=== PATIENT | male | born 1955 | race Caucasian/White ===

== ENCOUNTER 2017-04-10 07:14 | Day surgery (SDC) | payer BC ==
[2017-04-10] MEDS ORDERED: Dextrose 5%-Lactated Ringers 1,000 ML IV SCH (07:30)
[2017-04-10] MEDS ORDERED: Midazolam 1 MG/ML 2 ML SDV ONE (07:37)
[2017-04-10] MEDS ORDERED: fentaNYL 100 MCG/2 ML SDV ONE (07:37)
[2017-04-10] MEDS ORDERED: Propofol 200 MG/20 ML SDV ONE (07:37)
[2017-04-10 10:45] VITALS: BP 118/72
--- NOTE | 2017-04-16 13:21 | OR ---
DATE OF PROCEDURE: 04/10/2017 PREOPERATIVE DIAGNOSIS: History of colonic adenomas. POSTOPERATIVE DIAGNOSIS: Normal colonoscopic examination with no recurrent polyp disease. OPERATIVE PROCEDURE: Flexible colonoscopy. ANESTHESIA: IV sedation. INDICATIONS FOR PROCEDURE: This 61-year-old is 3 years status post a colonoscopy, at which time a tubular adenoma was removed. Plan is to proceed with a repeat colonoscopy with biopsies and/or polypectomy as indicated. Potential risks including bleeding and perforation were discussed, and the patient wishes to proceed. DETAILS OF PROCEDURE: The patient was taken to the operating room and placed in a left lateral decubitus position. IV sedation was administered, after which the initial digital rectal exam was performed and it was unremarkable. Colonoscope was then passed into the rectum with retroflexion revealing uncomplicated hemorrhoidal columns. The scope was then eventually passed to the level of the cecum. The prep was quite good with there only being a small amount of liquid stool to that level, no abnormalities were noted. Specifically, there were no diverticula, no areas of colitis, no polyps or other signs of neoplasia. The scope was then withdrawn and the procedure concluded. The patient was taken to the recovery room in a satisfactory condition. The recommendation would be to repeat the colonoscopy in 5 years given the history of preparations adenomas. Juwan White MD /[id number]
== END 2017-04-10 10:25 | disposition home or self-care (01) ==
LOC: JP.SDS 07:14
PROVIDERS: ATTEND Surgery
DX: Z12.11 Encounter for screening for malignant neoplasm of colon (principal); K64.9 Unspecified hemorrhoids; K21.9 Gastro-esophageal reflux disease without esophagitis; E66.9 Obesity, unspecified; Z79.899 Other long term (current) drug therapy; Z86.010 Personal history of colon polyps
CPT/HCPCS: 45378; J2250; J2704; J3010; J7042

== ENCOUNTER 2018-07-23 06:05 | Inpatient (IN) | payer BC ==
[~2018-07-23 06:05] MED LIST: Acetaminophen 500 MG Tab PO ONE; Gabapentin 300 MG Cap PO ONE
[2018-07-23] MEDS: Scopolamine 1.5 MG Transdermal Patch TRDERM SCH ×2 (06:33→16:21)
[2018-07-23] MEDS ORDERED: Povidone-Iodine 10% Soln 118.25 ML Bottle ONE (06:37)
[2018-07-23] MEDS: Sodium Chloride 0.9% 1,000 ML IV SCH ×2 (06:39→21:06)
[2018-07-23] MEDS ORDERED: Nozin Nasal Sanitizer NASBOTH ONE (07:00)
[2018-07-23] MEDS ORDERED: Midazolam 1 MG/ML 2 ML SDV ONE ×2 (07:21→09:34)
[2018-07-23] MEDS ORDERED: Propofol 200 MG/20 ML SDV ONE ×6 (07:21→10:29)
[2018-07-23] MEDS ORDERED: fentaNYL 100 MCG/2 ML SDV ONE ×2 (07:21→09:40)
[2018-07-23] MEDS ORDERED: ceFAZolin 2 GM in Premix Bag 1 BAG IV ONE (07:30)
[2018-07-23] MEDS ORDERED: Sodium Chloride 0.9% 10 ML ONE (08:08)
[2018-07-23] MEDS ORDERED: Lactated Ringers 1,000 ML ONE ×2 (08:22→10:53)
[2018-07-23] MEDS ORDERED: ePHEDrine 50 MG/ML SDV ONE (08:37)
[2018-07-23] MEDS ORDERED: Atropine 0.4 MG/ML SDV ONE (10:01)
[2018-07-23] MEDS ORDERED: Acetaminophen 325 MG Tab PO PRN (11:08)
[2018-07-23] MEDS ORDERED: Acetaminophen/HYDROcodone 325-5 MG Tab PO PRN ×2 (11:08→11:37)
[2018-07-23] MEDS ORDERED: ceFAZolin 1 GM in Sodium Chloride 0.9% 50 ML IV SCH ×2 (11:15→14:00)
[2018-07-23] MEDS: Ondansetron 4 MG Tab.DIS PO PRN ×2 (14:42→20:58)
[2018-07-23] MEDS: Morphine 2 MG/ML Syringe IVPUSH PRN ×2 (14:47→15:47)
[2018-07-23] MEDS: ceFAZolin 1 GM in Premix Bag 1 BAG IV SCH ×2 (14:48→21:01)
[2018-07-23] MEDS ORDERED: Promethazine 12.5 MG in Sodium Chloride 0.9% 50 ML IV PRN (16:21)
[2018-07-23] MEDS ORDERED: Ketorolac 60 MG/2 ML SDV IM ONE (16:45)
--- NOTE | 2018-07-23 16:55 | PCM.OPNOTE ---
- General Post-Op/Procedure Note Date of Surgery/Procedure: 07/23/18 Operative Procedure(s): bilateral medial unicompartmental knee arthroplasties Findings: Osteoarthritis bilateral knees, medial compartment Pre Op Diagnosis: OA bilateral knees Post-Op Diagnosis: Same Anesthesia Technique: Moderate Sedation, Spinal Primary Surgeon: Naresh Morin EBBilly in mLs: 100 Complications: None Condition: Good Free Text/Narrative:: Intake & Output 07/23/18 07/23/18 07/23/18 06:59 14:59 22:59 Output Total 275 Balance -275 Indications: Mr. Craig is a 62-year-old male with a history of progressive pain in both knees. Left knee has been worse and has been bothering him for a longer period of time but the right knee is now also symptomatic. He has pain in the medial aspect of both knees. X-rays show medial compartment collapse.He has been unsuccessful with conservative treatment. . He now presents for bilateral unicompartmehroplasties.Risks, benefits and potential complications were discussed. He wishes to proceed. Procedure:After adequate spinal anesthesia was obtained with sedation and administration of preoperative antibiotic Both legs were prepped and draped in a sterile fashion.Left leg was exsanguinated and tourniquet inflated to 300 mg of mercury pressure.Incision was made just medial to midline from the tibial tubercle to the superior pole of the patella.Medial parapatella arthrotomy is performed. Small portion of the fat pad and anterior horn of the medial meniscus was excised. The knee was flexed and a retractor was placed protecting the MCL.An oscillating saw was used to resect the anterior boss of the tibia. The knee was then extended and an extra-medullary alignment jig was was placed. The jig was aligned and secured with a headed pin in the tibia. Tension was set in the medial compartment and the tibial and femoral jigs were then secured with pins. The distal femoral cut was then made.Femoral jig was removed along with the bone fragment.Proximal tibia was then cut with a reciprocating saw. The fragment was removed and measured against the sizing guides. Medial meniscus was excised. The femoral size was selected. An F size provided best fit. This was secured to the femur with pins and remaining cuts and drill holes were then made. The tibia was then sized to a size 4.Tibial trial was tapped into position and peg holes drilled. Femoral trial was placed and an 8 mm insert was trialed. Trial insert could not be placed due to the gap being too tight in both flexion and extension.The tibia was then recut. Trial was placed once again, 8 mm millimeter insert was placed.The 2 mm spacing could be placed in both flexion and extension with good tension. Trials were removed. The knee was irrigated with pulse lavage.The tibial component was then cemented in place.Excess cement was removed. The femoral component was then cemented in place and excess cement removed. The 8 mm trial was then placed and the knee was held in full extension as the cement cured. The 2 mm gap spacer could be placced in both flexion and extension. trial was removed. The knee was irrigated again and the final polyethylene insert was placed. The knee was then irrigated with dilute Betadine and closed with #1 Ethibond in the capsule layer in a running fashion. 2-0 Vicryl and 3-0 Monocryl for the skin. Steri-Stri Were applied and a sterile dressing then placed. Tourniquet was released. Attention was then turned to he right knee. The knee was wiped down with Betadine and a incision was made just medial to midline. A medial parapatellar approach was then utilized again. Anterior meniscus and portion of the fat pad weThe oscillating saw was used to remove the lip of the tibia. The knee was e This was aligned and secured with pins.A sterile fmoral cut was then made.Femoral jig was removed.Knee was then flexed and a reciprocating saw was us complete the tibial cuts. Tibial fragment was removed and measured. Femur was then sized to an E component.E jig was secured and femoral preparation completed.A size 4 tibial guide was placed. Peg holes were drilled. The 8 mm trial was tight and the tibia was recut. Trials were again placed with an 8 mm insert provided good tension. Trials were removed. The knee was irrigated. Components were cemented in place. Excess cement was removed and the knee was held in full extension with an 8 mm trial. the knee was irrigated. The final 8 mm insert was placed. The knee was irrigated once again with dilute Betadine. Incision was then closed with a #1 Ethibond in the capsule layer. 2-0 Vicryl and a 3-0 Monocryl in the skin. Steri-Strips and a sterile dressing were applied.Tourniquet was deflated. Patient was taken from the operating room in stable condition and there were no complications.
[2018-07-23] MEDS: Acetaminophen/oxyCODONE 325-5 MG Tab PO PRN ×2 (17:27→21:34)
[2018-07-23] MEDS: Nozin Nasal Sanitizer NASBOTH SCH (20:59)
[2018-07-23] MEDS ORDERED: Aspirin 325 MG Tab.EC PO SCH (21:00)
[2018-07-23] MEDS ORDERED: Non-Formulary Medication 1 Each (Atorvastatin [Lipitor] 20 MG) PO SCH (21:00)
[2018-07-23] MEDS: Aspirin 325 MG Tab.EC PO SCH (21:09)
[2018-07-23] MEDS: atorvaSTATin 20 MG Tab PO SCH (21:10)
[2018-07-24] MEDS: Acetaminophen/oxyCODONE 325-5 MG Tab PO PRN ×6 (01:54→22:17)
[2018-07-24] MEDS: ceFAZolin 1 GM in Premix Bag 1 BAG IV SCH (05:51)
[2018-07-24] MEDS: Nozin Nasal Sanitizer NASBOTH SCH ×2 (08:32→21:39)
[2018-07-24] MEDS: Aspirin 325 MG Tab.EC PO SCH ×2 (08:32→21:39)
[2018-07-24] MEDS: Latanoprost 0.005% Ophth Soln 2.5 ML Bottle EYEBOTH SCH (08:32)
[2018-07-24] MEDS: Timolol Maleate 0.5% Ophth Soln 5 ML Bottle EYEBOTH SCH (08:33)
[2018-07-24] MEDS: Sodium Chloride 0.9% 1,000 ML IV SCH (08:37)
[2018-07-24] MEDS ORDERED: Non-Formulary Medication 1 Each (Timolol [Betimol 0.5% Ophth Soln] 1 DROP) EYEBOTH SCH (09:00)
--- NOTE | 2018-07-24 13:35 | CRLCR ---
INDICATION: Postop knee arthroplasties TECHNIQUE: Two views right left knees COMPARISON: 05/31/2018 FINDINGS: Right knee: Bones: Alignment is normal. No fractures or bone lesions. Joint spaces: Medial compartment hemiarthroplasty. Soft tissues: Postop soft tissue edema and subcutaneous air in the prepatellar soft tissues. Left knee: Bones: Alignment is normal. No fractures or bone lesions. Joint spaces: Medial compartment hemiarthroplasty. Soft tissues: Prevertebral postop soft tissue edema. IMPRESSION: Bilateral compartment hemiarthroplasty with no obvious hardware abnormalities. Bilateral patella soft tissue postoperative changes. Dictated by Anthony Zuniga MD @ 07/24/2018 1:34:01 PM Dictated by: Anthony Zuniga MD @ 07/24/2018 13:34:05 (Electronically Signed)
[2018-07-24] MEDS: Ibuprofen 800 MG Tab PO SCH ×2 (15:10→21:40)
[2018-07-24] MEDS: atorvaSTATin 20 MG Tab PO SCH (21:40)
[2018-07-25] MEDS: Ibuprofen 800 MG Tab PO SCH ×2 (06:46→13:35)
[2018-07-25] MEDS: Acetaminophen/oxyCODONE 325-5 MG Tab PO PRN ×3 (06:50→14:21)
[2018-07-25] MEDS: Aspirin 325 MG Tab.EC PO SCH (08:13)
[2018-07-25] MEDS: Nozin Nasal Sanitizer NASBOTH SCH (08:13)
[2018-07-25] MEDS: Timolol Maleate 0.5% Ophth Soln 5 ML Bottle EYEBOTH SCH (08:13)
[2018-07-25] MEDS: Latanoprost 0.005% Ophth Soln 2.5 ML Bottle EYEBOTH SCH (08:14)
--- NOTE | 2018-07-25 11:13 | PCM.SURGPN ---
- General Info Date of Service: 07/24/18 POD#: 1 Post-Op Diagnosis: S/P bilateral unicompartmental knee arthroplasty - Review of Systems General: Reports: No Symptoms Gastrointestinal: Reports: Nausea Neurological: Reports: No Symptoms Psychiatric: Reports: No Symptoms Systems Review Comment:: Pain initially not controlled, better with change of meds, Some nausea overnight , better now. - Patient Data Vitals - Most Recent: Last Vital Signs Temp 36.4 C 07/25/18 07:37 Pulse 76 07/25/18 07:37 Resp 16 07/25/18 07:37 BP 124/72 07/25/18 07:37 Pulse Ox 92 L 07/25/18 07:37 Weight - Most Recent: 131.542 kg I&O - Last 24 Hours: Intake & Output 07/24/18 07/25/18 07/25/18 22:59 06:59 14:59 Intake Total 2083 500 Output Total 1200 600 Balance 883 -600 500 Med Orders - Current: Current Medications Acetaminophen (Tylenol) 650 mg PO Q4H PRN PRN Reason: Pain/Fever Aspirin (Ecotrin) 325 mg PO BID [facility] Last Admin: 07/25/18 08:13 Dose: 325 mg Atorvastatin Calcium (Lipitor) 20 mg PO BEDTIME [facility] Last Admin: 07/24/18 21:40 Dose: 20 mg Bandage/Support Products ( Nasal Field Foreman) 1 applic NASBOTH BID [facility] Last Admin: 07/25/18 08:13 Dose: 1 applic Sodium Chloride (Normal Saline) 1,000 mls @ 100 mls/hr IV ASDIRECTED [facility] Last Admin: 07/24/18 08:37 Dose: 100 mls/hr Promethazine HCl 12.5 mg/ (Sodium Chloride) 50.5 mls @ 200 mls/hr IV Q6H PRN PRN Reason: Nausea/Vomiting Last Admin: 07/23/18 16:54 Dose: 200 mls/hr Ibuprofen (Motrin) 800 mg PO Q8H [facility] Last Admin: 07/25/18 06:46 Dose: 800 mg Latanoprost (Xalatan 0.005% Ophth Soln) 0 ml EYEBOTH DAILY [facility] Last Admin: 07/25/18 08:14 Dose: 1 drop Morphine Sulfate (Morphine) 2 mg IVPUSH Q1H PRN PRN Reason: Pain (severe 7-10) Last Admin: 07/23/18 15:47 Dose: 2 mg Ondansetron HCl (Zofran Odt) 4 mg PO Q6H PRN PRN Reason: Nausea/Vomiting Last Admin: 07/23/18 20:58 Dose: 4 mg Oxycodone/Acetaminophen (Percocet 325-5 Mg) 2 tab PO Q4H PRN PRN Reason: Pain (moderate 4-6) Last Admin: 07/25/18 10:38 Dose: 2 tab Scopolamine (Transderm-Scop) 1.5 mg TRDERM Q72H [facility] Last Admin: 07/23/18 16:21 Dose: 1.5 mg Timolol Maleate (Timoptic 0.5% Ophth Soln) 0 ml EYEBOTH DAILY [facility] Last Admin: 07/25/18 08:13 Dose: 1 drop Discontinued Medications Acetaminophen (Tylenol Extra Strength) 1,000 mg PO ONETIME ONE Stop: 07/23/18 06:01 Last Admin: 07/23/18 06:33 Dose: 1,000 mg Hydrocodone Bitart/Acetaminophen ([place] 325-5 Mg) 1 tab PO Q3H PRN PRN Reason: Pain (moderate 4-6) Hydrocodone Bitart/Acetaminophen ([place] 325-5 Mg) 1 tab PO Q3H PRN PRN Reason: Pain (moderate 4-6) Last Admin: 07/23/18 13:53 Dose: 1 tab Aspirin (Ecotrin) 325 mg PO BID [facility] Atropine Sulfate (Atropine) Confirm Administered Dose 0.4 mg .ROUTE .STK-MED ONE Stop: 07/23/18 10:02 Bandage/Support Products ( Nasal Field Foreman) 1 applic NASBOTH ONETIME ONE Stop: 07/23/18 07:01 Last Admin: 07/23/18 07:07 Dose: 1 bottle Ephedrine Sulfate (Ephedrine Sulfate) Confirm Administered Dose 50 mg .ROUTE .STK-MED ONE Stop: 07/23/18 08:38 Fentanyl (Sublimaze) Confirm Administered Dose 100 mcg .ROUTE .STK-MED ONE Stop: 07/23/18 07:22 Fentanyl (Sublimaze) Confirm Administered Dose 100 mcg .ROUTE .STK-MED ONE Stop: 07/23/18 09:41 Gabapentin (Neurontin) 300 mg PO ONETIME ONE Stop: 07/23/18 06:01 Last Admin: 07/23/18 06:33 Dose: 300 mg Cefazolin Sodium/Dextrose 2 gm (/ Premix) 50 mls @ 100 mls/hr IV ONETIME ONE Stop: 07/23/18 07:59 Last Admin: 07/23/18 07:29 Dose: 100 mls/hr Sodium Chloride (Normal Saline) Confirm Administered Dose 10 mls @ as directed .ROUTE .STK-MED ONE Stop: 07/23/18 08:09 Lactated Ringer's (Ringers, Lactated) Confirm Administered Dose 1,000 mls @ as directed .ROUTE .STK-MED ONE Stop: 07/23/18 08:23 Lactated Ringer's (Ringers, Lactated) Confirm Administered Dose 1,000 mls @ as directed .ROUTE .STK-MED ONE Stop: 07/23/18 10:54 Cefazolin Sodium 1 gm/ Sodium (Chloride) 50 mls @ 200 mls/hr IV Q8H [facility] Stop: 07/24/18 03:29 Last Admin: 07/23/18 14:12 Dose: Not Given Cefazolin Sodium/Dextrose 1 gm (/ Premix) 50 mls @ 100 mls/hr IV Q8H [facility] Stop: 07/24/18 06:29 Last Admin: 07/24/18 05:51 Dose: 100 mls/hr Ketorolac Tromethamine (Toradol) 60 mg IM ONETIME ONE Stop: 07/23/18 16:46 Last Admin: 07/23/18 16:44 Dose: 60 mg Midazolam HCl (Versed 1 Mg/Ml) Confirm Administered Dose 2 mg .ROUTE .STK-MED ONE Stop: 07/23/18 07:22 Midazolam HCl (Versed 1 Mg/Ml) Confirm Administered Dose 2 mg .ROUTE .STK-MED ONE Stop: 07/23/18 09:35 Non-Formulary Medication (Atorvastatin [Lipitor]) 20 mg PO BEDTIME [facility] Non-Formulary Medication (Timolol [Betimol 0.5% Ophth Soln]) 1 drop EYEBOTH DAILY [facility] Povidone Iodine (Betadine 10% Soln) Confirm Administered Dose 1 ml .ROUTE .STK- MED ONE Stop: 07/23/18 06:38 Last Admin: 07/23/18 08:41 Dose: 50 ml Propofol (Diprivan 20 Ml) Confirm Administered Dose 200 mg .ROUTE .STK-MED ONE Stop: 07/23/18 07:22 Propofol (Diprivan 20 Ml) Confirm Administered Dose 200 mg .ROUTE .STK-MED ONE Stop: 07/23/18 08:39 Propofol (Diprivan 20 Ml) Confirm Administered Dose 200 mg .ROUTE .STK-MED ONE Stop: 07/23/18 09:15 Propofol (Diprivan 20 Ml) Confirm Administered Dose 200 mg .ROUTE .STK-MED ONE Stop: 07/23/18 09:36 Propofol (Diprivan 20 Ml) Confirm Administered Dose 200 mg .ROUTE .STK-MED ONE Stop: 07/23/18 10:11 Propofol (Diprivan 20 Ml) Confirm Administered Dose 200 mg .ROUTE .STK-MED ONE Stop: 07/23/18 10:30 - Exam Wound/Incisions: Dressing Dry and Intact General: Alert, Oriented Lungs: Clear to Auscultation, Normal Respiratory Effort Cardiovascular: Regular Rate, Regular Rhythm Skin: Warm, Dry, Intact Neurological: No New Focal Deficit Psy/Mental Status: Alert, Normal Affect, Normal Mood Physical Findings Comment:: Doing very well with PT, both walking and ROM - Problem List & Annotations (1) Status post left partial knee replacement SNOMED Code(s): 466143171, 17653420, 433074892, 152754711 Code(s): Z96.652 - PRESENCE OF LEFT ARTIFICIAL KNEE JOINT Status: Acute Current Visit: Yes (2) Status post right partial knee replacement SNOMED Code(s): 927761163, 61811379, 958471026, 778524864 Code(s): Z96.651 - PRESENCE OF RIGHT ARTIFICIAL KNEE JOINT Status: Acute Current Visit: Yes - Problem List Review Problem List Initiated/Reviewed/Updated: Yes - My Orders Last 24 Hours: Active Orders 24 hr Category Date Time Status OT Evaluation and Treatment [CONS] Routine Cons 07/25/18 08:16 Active PT Evaluation and Treatment [CONS] Routine Cons 07/25/18 11:08 Active Ibuprofen [Motrin] Med 07/24/18 14:30 Active 800 mg PO Q8H Convert IV to Saline Lock [OM.PC] Routine Oth 07/24/18 18:54 Ordered Medication Orders Acetaminophen (Tylenol) 650 mg PO Q4H PRN PRN Reason: Pain/Fever Aspirin (Ecotrin) 325 mg PO BID [facility] Last Admin: 07/25/18 08:13 Dose: 325 mg Admin: 07/24/18 21:39 Dose: 325 mg Admin: 07/24/18 08:32 Dose: 325 mg Admin: 07/23/18 21:09 Dose: Not Given Atorvastatin Calcium (Lipitor) 20 mg PO BEDTIME [facility] Last Admin: 07/24/18 21:40 Dose: 20 mg Admin: 07/23/18 21:10 Dose: Not Given Bandage/Support Products ( Nasal Field Foreman) 1 applic NASBOTH BID [facility] Last Admin: 07/25/18 08:13 Dose: 1 applic Admin: 07/24/18 21:39 Dose: 1 applic Admin: 07/24/18 08:32 Dose: 1 applic Admin: 07/23/18 20:59 Dose: 1 applic Sodium Chloride (Normal Saline) 1,000 mls @ 100 mls/hr IV ASDIRECTED [facility] Last Admin: 07/24/18 08:37 Dose: 100 mls/hr Infusion: 07/24/18 07:06 Dose: 100 mls/hr Admin: 07/23/18 21:06 Dose: 100 mls/hr Infusion: 07/23/18 16:39 Dose: 100 mls/hr Admin: 07/23/18 06:39 Dose: 100 mls/hr Promethazine HCl 12.5 mg/ (Sodium Chloride) 50.5 mls @ 200 mls/hr IV Q6H PRN PRN Reason: Nausea/Vomiting Last Admin: 07/23/18 16:54 Dose: 200 mls/hr Ibuprofen (Motrin) 800 mg PO Q8H [facility] Last Admin: 07/25/18 06:46 Dose: 800 mg Admin: 07/24/18 21:40 Dose: 800 mg Admin: 07/24/18 15:10 Dose: 800 mg Latanoprost (Xalatan 0.005% Ophth Soln) 0 ml EYEBOTH DAILY [facility] Last Admin: 07/25/18 08:14 Dose: 1 drop Admin: 07/24/18 08:32 Dose: 1 drop Morphine Sulfate (Morphine) 2 mg IVPUSH Q1H PRN PRN Reason: Pain (severe 7-10) Last Admin: 07/23/18 15:47 Dose: 2 mg Admin: 07/23/18 14:47 Dose: 2 mg Ondansetron HCl (Zofran Odt) 4 mg PO Q6H PRN PRN Reason: Nausea/Vomiting Last Admin: 07/23/18 20:58 Dose: 4 mg Admin: 07/23/18 14:42 Dose: 4 mg Oxycodone/Acetaminophen (Percocet 325-5 Mg) 2 tab PO Q4H PRN PRN Reason: Pain (moderate 4-6) Last Admin: 07/25/18 10:38 Dose: 2 tab Admin: 07/25/18 06:50 Dose: 2 tab Admin: 07/24/18 22:17 Dose: 2 tab Admin: 07/24/18 17:57 Dose: 2 tab Admin: 07/24/18 14:10 Dose: 2 tab Admin: 07/24/18 10:10 Dose: 2 tab Admin: 07/24/18 05:56 Dose: 2 tab Admin: 07/24/18 01:54 Dose: 2 tab Admin: 07/23/18 21:34 Dose: 2 tab Admin: 07/23/18 17:27 Dose: 2 tab Scopolamine (Transderm-Scop) 1.5 mg TRDERM Q72H [facility] Last Admin: 07/23/18 16:21 Dose: 1.5 mg Admin: 07/23/18 06:33 Dose: 1.5 mg Timolol Maleate (Timoptic 0.5% Ophth Soln) 0 ml EYEBOTH DAILY [facility] Last Admin: 07/25/18 08:13 Dose: 1 drop Admin: 07/24/18 08:33 Dose: 1 drop - Assessment Assessment (Free Text/Narrative):: Doing very well now that nausea and pain are under control - Plan Plan (Free Text/Narrative):: Continue PT. Change dressing tomorrow and will likely be ready for home.
[2018-07-25 12:04] VITALS: BP 157/114
--- NOTE | 2018-08-01 14:39 | PCM.DCSUM1 ---
Discharge Summary - Hospital Course Free Text/Narrative:: 62 year old male with history of progressive bilateral knee pain for past several months. Interfering with walking, stair climbing and ADLs. Initially had most pain in left knee but has had increasing pain in right knee for past few weeks. X-rays show degenerative changes with medial joint space collapse. He has not responded to conservative treatment. Admitted for bilateral medial unicompartmental knee arthroplasties. Stable postoperatively with no problems other than nausea with pain medication. Progressed very well with PT. Dressing were changed prior to discharge, no drainage or evidence of infection. Was handling diet and was independent with activity by POD #2. Discharged to home. Follow up approximately 2 weeks. Diagnosis: Stroke: No - Discharge Data Discharge Date: 07/25/18 Discharge Disposition: Home, Self-Care 01 Condition: Good - Discharge Diagnosis/Problem(s) (1) Status post left partial knee replacement SNOMED Code(s): 801487040, [id number], [id number], [id number] ICD Code: Z96.652 - PRESENCE OF LEFT ARTIFICIAL KNEE JOINT Status: Acute (2) Status post right partial knee replacement SNOMED Code(s): 486916503, 82609009, 499180200, 215481703 ICD Code: Z96.651 - PRESENCE OF RIGHT ARTIFICIAL KNEE JOINT Status: Acute - Patient Summary/Data Operative Procedure(s) Performed: bilateral medial unicompartmental knee arthroplasties Consults: Consultations 07/25/18 08:16 OT Evaluation and Treatment [CONS] Routine Please Evaluate and Treat. OT Reason for Consult: ADL's This query below is only for informational purposes and is not editable. Admission Diagnosis/Problem: Osteoarthritis 07/25/18 11:08 PT Evaluation and Treatment [CONS] Routine Please Evaluate and Treat. PT Reason for Consult: Ambulation Discharge Disposition: Home w Outpatient Therapy Special Instructions: Bilateral knees WBAT, ROM This query below is only for informational purposes and is not editable. - Patient Instructions Diet: Usual Diet as Tolerated Activity: Apply Ice, As Tolerated Driving: Do Not Drive Showering/Bathing: May Shower, No Tub Bathing/Swimming Wound/Incision Care: Keep Operative Site/Wound Site Clean and Dry Notify Provider of: Fever, Increased Pain, Swelling and Redness, Drainage - Discharge Plan *PRESCRIPTION DRUG MONITORING PROGRAM REVIEWED*: No *COPY OF PRESCRIPTION DRUG MONITORING REPORT IN PATIENT [place]: No Home Medications: Home Meds EPINEPHrine [Epipen] 0.3 mg IM ASDIRECTED PRN 03/07/14 [History] Ibuprofen [Advil] 3 tab PO Q8HR PRN 03/07/14 [History] Latanoprost [Xalatan] 1 drop EYEBOTH DAILY 03/07/14 [History] atorvaSTATin [Lipitor] 20 mg PO BEDTIME 07/18/15 [History] Aspirin 81 mg PO DAILY 02/27/17 [History] Cholecalciferol (Vitamin D3) [Vitamin D3] 1 tab PO DAILY 02/27/17 [History] Timolol [Betimol 0.5% Ophth Soln] 1 drop EYEBOTH DAILY 07/23/18 [History] Other Amb Orders: PT Evaluation and Treatment [CONS] Time Frame: 3 Days, Location: None Selected Patient Handouts: Total Knee Replacement, Care After, [id number] Referrals: Devin Craig, PT [Physical Therapist] - 07/27/18 1:45 pm (PLease arrive 30 minutes early to register for your appointment.) Naresh Morin MD [Physician] - 08/07/18 9:00 am (Please arrive 15 minutes early to register for your appointment.) - Discharge Summary/Plan Comment DC Time >30 min.: No - General Info Functional Status: Reports: Pain Controlled - Review of Systems General: Reports: No Symptoms HEENT: Reports: No Symptoms Pulmonary: Reports: No Symptoms Cardiovascular: Reports: No Symptoms Gastrointestinal: Reports: No Symptoms Genitourinary: Reports: No Symptoms Skin: Reports: No Symptoms Neurological: Reports: No Symptoms Psychiatric: Reports: No Symptoms - Patient Data Vitals - Most Recent: Last Vital Signs Temp 35.3 C 07/25/18 12:03 Pulse 80 07/25/18 12:03 Resp 16 07/25/18 12:03 BP 157/114 H 07/25/18 12:03 Pulse Ox 91 L 07/25/18 12:03 Weight - Most Recent: 131.542 kg Med Orders - Current: Current Medications Discontinued Medications Acetaminophen (Tylenol Extra Strength) 1,000 mg PO ONETIME ONE Stop: 07/23/18 06:01 Last Admin: 07/23/18 06:33 Dose: 1,000 mg Acetaminophen (Tylenol) 650 mg PO Q4H PRN PRN Reason: Pain/Fever Hydrocodone Bitart/Acetaminophen ([place] 325-5 Mg) 1 tab PO Q3H PRN PRN Reason: Pain (moderate 4-6) Hydrocodone Bitart/Acetaminophen ([place] 325-5 Mg) 1 tab PO Q3H PRN PRN Reason: Pain (moderate 4-6) Last Admin: 07/23/18 13:53 Dose: 1 tab Aspirin (Ecotrin) 325 mg PO BID ANDRÉS Aspirin (Ecotrin) 325 mg PO BID [facility] Last Admin: 07/25/18 08:13 Dose: 325 mg Atorvastatin Calcium (Lipitor) 20 mg PO BEDTIME ANDRÉS Last Admin: 07/24/18 21:40 Dose: 20 mg Atropine Sulfate (Atropine) Confirm Administered Dose 0.4 mg .ROUTE .STK-MED ONE Stop: 07/23/18 10:02 Bandage/Support Products ( Nasal Tire Trimmer Hand) 1 applic NASBOTH ONETIME ONE Stop: 07/23/18 07:01 Last Admin: 07/23/18 07:07 Dose: 1 bottle Bandage/Support Products ( Nasal Tire Trimmer Hand) 1 applic NASBOTH BID [facility] Last Admin: 07/25/18 08:13 Dose: 1 applic Ephedrine Sulfate (Ephedrine Sulfate) Confirm Administered Dose 50 mg .ROUTE .STK-MED ONE Stop: 07/23/18 08:38 Fentanyl (Sublimaze) Confirm Administered Dose 100 mcg .ROUTE .STK-MED ONE Stop: 07/23/18 07:22 Fentanyl (Sublimaze) Confirm Administered Dose 100 mcg .ROUTE .STK-MED ONE Stop: 07/23/18 09:41 Gabapentin (Neurontin) 300 mg PO ONETIME ONE Stop: 07/23/18 06:01 Last Admin: 07/23/18 06:33 Dose: 300 mg Cefazolin Sodium/Dextrose 2 gm (/ Premix) 50 mls @ 100 mls/hr IV ONETIME ONE Stop: 07/23/18 07:59 Last Admin: 07/23/18 07:29 Dose: 100 mls/hr Sodium Chloride (Normal Saline) 1,000 mls @ 100 mls/hr IV ASDIRECTED [facility] Last Admin: 07/24/18 08:37 Dose: 100 mls/hr Sodium Chloride (Normal Saline) Confirm Administered Dose 10 mls @ as directed .ROUTE .STK-MED ONE Stop: 07/23/18 08:09 Lactated Ringer's (Ringers, Lactated) Confirm Administered Dose 1,000 mls @ as directed .ROUTE .STK-MED ONE Stop: 07/23/18 08:23 Lactated Ringer's (Ringers, Lactated) Confirm Administered Dose 1,000 mls @ as directed .ROUTE .STK-MED ONE Stop: 07/23/18 10:54 Cefazolin Sodium 1 gm/ Sodium (Chloride) 50 mls @ 200 mls/hr IV Q8H [facility] Stop: 07/24/18 03:29 Last Admin: 07/23/18 14:12 Dose: Not Given Cefazolin Sodium/Dextrose 1 gm (/ Premix) 50 mls @ 100 mls/hr IV Q8H [facility] Stop: 07/24/18 06:29 Last Admin: 07/24/18 05:51 Dose: 100 mls/hr Promethazine HCl 12.5 mg/ (Sodium Chloride) 50.5 mls @ 200 mls/hr IV Q6H PRN PRN Reason: Nausea/Vomiting Last Admin: 07/23/18 16:54 Dose: 200 mls/hr Ibuprofen (Motrin) 800 mg PO Q8H [facility] Last Admin: 07/25/18 13:35 Dose: 800 mg Ketorolac Tromethamine (Toradol) 60 mg IM ONETIME ONE Stop: 07/23/18 16:46 Last Admin: 07/23/18 16:44 Dose: 60 mg Latanoprost (Xalatan 0.005% Ophth Soln) 0 ml EYEBOTH DAILY [facility] Last Admin: 07/25/18 08:14 Dose: 1 drop Midazolam HCl (Versed 1 Mg/Ml) Confirm Administered Dose 2 mg .ROUTE .STK-MED ONE Stop: 07/23/18 07:22 Midazolam HCl (Versed 1 Mg/Ml) Confirm Administered Dose 2 mg .ROUTE .STK-MED ONE Stop: 07/23/18 09:35 Morphine Sulfate (Morphine) 2 mg IVPUSH Q1H PRN PRN Reason: Pain (severe 7-10) Last Admin: 07/23/18 15:47 Dose: 2 mg Non-Formulary Medication (Atorvastatin [Lipitor]) 20 mg PO BEDTIME [facility] Non-Formulary Medication (Timolol [Betimol 0.5% Ophth Soln]) 1 drop EYEBOTH DAILY [facility] Ondansetron HCl (Zofran Odt) 4 mg PO Q6H PRN PRN Reason: Nausea/Vomiting Last Admin: 07/23/18 20:58 Dose: 4 mg Oxycodone/Acetaminophen (Percocet 325-5 Mg) 2 tab PO Q4H PRN PRN Reason: Pain (moderate 4-6) Last Admin: 07/25/18 14:21 Dose: 2 tab Povidone Iodine (Betadine 10% Soln) Confirm Administered Dose 1 ml .ROUTE .STK- MED ONE Stop: 07/23/18 06:38 Last Admin: 07/23/18 08:41 Dose: 50 ml Propofol (Diprivan 20 Ml) Confirm Administered Dose 200 mg .ROUTE .STK-MED ONE Stop: 07/23/18 07:22 Propofol (Diprivan 20 Ml) Confirm Administered Dose 200 mg .ROUTE .STK-MED ONE Stop: 07/23/18 08:39 Propofol (Diprivan 20 Ml) Confirm Administered Dose 200 mg .ROUTE .STK-MED ONE Stop: 07/23/18 09:15 Propofol (Diprivan 20 Ml) Confirm Administered Dose 200 mg .ROUTE .STK-MED ONE Stop: 07/23/18 09:36 Propofol (Diprivan 20 Ml) Confirm Administered Dose 200 mg .ROUTE .STK-MED ONE Stop: 07/23/18 10:11 Propofol (Diprivan 20 Ml) Confirm Administered Dose 200 mg .ROUTE .STK-MED ONE Stop: 07/23/18 10:30 Scopolamine (Transderm-Scop) 1.5 mg TRDERM Q72H [facility] Last Admin: 07/23/18 16:21 Dose: 1.5 mg Timolol Maleate (Timoptic 0.5% Ophth Soln) 0 ml EYEBOTH DAILY [facility] Last Admin: 07/25/18 08:13 Dose: 1 drop - Exam General: Reports: Alert, Oriented HEENT: Reports: Pupils Equal, Pupils Reactive, EOMI, Mucous Membr. Moist/[place] Neck: Reports: Supple Lungs: Reports: Clear to Auscultation, Normal Respiratory Effort Cardiovascular: Reports: Regular Rate, Regular Rhythm GI/Abdominal Exam: Normal Bowel Sounds, Soft, Non-Tender, No Organomegaly, No Distention, No Abnormal Bruit, No Mass, Pelvis Stable (Male) Exam: Deferred Rectal (Males) Exam: Deferred Skin: Reports: Warm, Dry, Intact Wound/Incisions: Reports: Healing Well, Dressing Dry and Intact, No Drainage Neurological: Reports: No New Focal Deficit Psy/Mental Status: Reports: Alert, Normal Affect, Normal Mood
== END 2018-07-25 14:39 | disposition home or self-care (01) | DRG 302 ==
LOC: JP.SDSSCHI 06:05 → JP.SDS 06:05 → EDSTATUS 07:30 → JP.MS 11:08 → UNDOADMIN 11:08
PROVIDERS: ADMIT Specialist; ATTEND Specialist
PROC: 0SRD0L9 Replacement of Left Knee Joint with Medial Unicondylar Synthetic Substitute, Cemented, Open Approach (ICD-10-PCS; principal; 2018-07-23)
PROC: 0SRC0L9 Replacement of Right Knee Joint with Medial Unicondylar Synthetic Substitute, Cemented, Open Approach (ICD-10-PCS; 2018-07-23)
DX: M17.0 Bilateral primary osteoarthritis of knee (principal); H40.9 Unspecified glaucoma; E78.5 Hyperlipidemia, unspecified; Z79.82 Long term (current) use of aspirin; E66.9 Obesity, unspecified; Z68.39 Body mass index [BMI] 39.0-39.9, adult; Z82.49 Family history of ischemic heart disease and other diseases of the circulatory system
CPT/HCPCS: 36415; 73560-50; 80053; 85027; 87493; 97110-GP; 97161-GP; 97165-GO; 97530-GP; 97535-GP; A9270-GY; C1713; J0461; J0690; J1885; J2250; J2270; J2550; J2704; J3010; J7030; J7050; J7120

== ENCOUNTER 2022-01-10 06:31 | Day surgery (SDC) | payer MEDICARE, BC ==
[2022-01-10] MEDS ORDERED: Lactated Ringers 1,000 ML IV SCH (07:00)
[2022-01-10] MEDS ORDERED: Sodium Chloride 0.9% 1,000 ML IV SCH (07:30)
[2022-01-10] MEDS ORDERED: fentaNYL 100 MCG/2 ML SDV ONE (07:40)
[2022-01-10] MEDS ORDERED: Propofol 200 MG/20 ML SDV ONE ×2 (07:40→09:10)
[2022-01-10 09:50] VITALS: BP 139/93; PULSE 57
== END 2022-01-10 10:14 | disposition home or self-care (01) ==
LOC: JP.SDS 06:31
PROVIDERS: ATTEND Surgery
DX: Z12.11 Encounter for screening for malignant neoplasm of colon (principal); I25.10 Atherosclerotic heart disease of native coronary artery without angina pectoris
CPT/HCPCS: G0121; J2704; J3010; J7030